=== PATIENT | female | born 1990 | race Caucasian/White ===

== ENCOUNTER → 2017-12-25 | Outpatient (CLI) | payer OTHER ==
--- NOTE | 2017-12-25 11:49 | RADIOLOGY IMAGING REPORT ---
[place] [facility] [place] NAME: Carito Grider : 1990 MR: [id number] V: [id number] EXAM DATE: ORDERING PHYSICIAN: MAGDALENE GUZMAN TECHNOLOGIST: Location: [facility] Patient: Carito Grider : 1990 Visit/Account:[id number] Date of Sevice: 12/25/2017 PELVIC HISTORY: Pelvic pain TECHNIQUE: Transabdominal and transvaginal ultrasound pelvis. COMPARISON: None. FINDINGS: Uterus: ; 8.1 cm length x 3.5 cm AP x 5.6 cm transverse. Myometrium: Unremarkable. Endometrium: Unremarkable; double thickness 4.3 mm. Cervix: Grossly negative. Ovaries: Right - 3.2 x 2.9 x 1.7 cm Left - 3.6 x 2.7 x 1.8 cm. Small follicles are identified in both of the ovaries Blood flow is documented in each ovary by duplex Doppler ultrasound. Adnexa: Grossly unremarkable. Free pelvic fluid: None. IMPRESSION: Unremarkable pelvic ultrasound Report Dictated By: Daniela Mcdonald MD at 12/25/2017 11:42 AM Report E-Signed By: Daniela Mcdonald MD at 12/25/2017 11:45 AM WSN:[id number]
== END ==
LOC: US 10:06
PROVIDERS: ATTEND Pediatrics Adolescent Medicine
DX: R10.2 Pelvic and perineal pain (principal)
CPT/HCPCS: 76856